=== PATIENT | male | born 1955 | race Caucasian/White ===

== ENCOUNTER 2023-11-27 21:29 | Emergency (ER) | payer BC, MEDICAID ==
[~2023-11-27] VITALS: Ht 172.7 cm; Wt 95.3 kg
[2023-11-27] MEDS ORDERED: HYDROCORTISONE 1% CREAM 30 GM TUBE TP ONE (21:58)
[2023-11-27] MEDS ORDERED: MUPIROCIN 2% OINT 22 GM TUBE ONE (21:59)
[2023-11-27] MEDS: MUPIROCIN 2% OINT 22 GM TUBE TP ONE (22:01)
[2023-11-27] MEDS: HYDROCORTISONE 1% CREAM 30 GM TUBE TP ONE (22:06)
[2023-11-27 22:22] VITALS: BP 189/90; TEMP 98.6; O2SAT 99
== END 2023-11-27 22:22 | disposition home or self-care (01) ==
LOC: ER 21:40
DX: R21 Rash and other nonspecific skin eruption (principal); Z60.2 Problems related to living alone
CPT/HCPCS: A4606; A4663

== ENCOUNTER 2024-06-28 20:18 | Emergency (ER) | payer BC, MEDICAID ==
[~2024-06-28] VITALS: Ht 177.8 cm; Wt 97.1 kg
[2024-06-28 21:48] LABS: *BILIRUBIN,URIN NEGATIVE (NEGATIVE); *BLOOD, URINE NEGATIVE (NEGATIVE); *CLARITY,URINE CLEAR (CLEAR); *COLOR,URINE YELLOW (YELLOW); *KETONES,URINE NEGATIVE (NEGATIVE); *PROTEIN,URINE 1+ (NEGATIVE); LEUKOCYTE ESTERASE ,URINE NEGATIVE (NEGATIVE); NITRITE, URINE NEGATIVE (NEGATIVE)
[2024-06-28 21:49] LABS: UGLUCOSE 2+ (NEGATIVE)
[2024-06-28 21:50] LABS: RBC,URINE 0-3 /HPF (0-3); WBC,URINE 0-3 /HPF (0-3)
[2024-06-28 23:14] VITALS: BP 173/94; TEMP 98.9; O2SAT 98
== END 2024-06-28 23:00 | disposition home or self-care (01) ==
LOC: ER 20:18
DX: I10 Essential (primary) hypertension (principal); R73.9 Hyperglycemia, unspecified; Z60.2 Problems related to living alone
CPT/HCPCS: A4606; A4663